=== PATIENT | female | born 1945 | race Caucasian/White ===

== ENCOUNTER 2020-12-18 10:47 | Observation (INO) | payer OTHER ==
[2020-12-18 11:29] LABS: Absolute Lymphocytes (CBC) 1.3 K/uL (0.7-4.9); Basophils % 0.6 % (0-1.3); Hematocrit 42.5 % (36.0-45.0); Lymphocytes % 25.6 % (15.3-44.8); MPV 10.1 fL (7.6-11.3); RBC Red Blood Cell Count 4.78 M/uL (3.86-4.86)
[2020-12-18 11:31] LABS: Protime INR 0.91
[2020-12-18 11:53] LABS: ALT/SGPT 28 U/L (12-78); AST/SGOT 20 U/L (15-37); Alkaline Phosphatase 69 U/L (45-117); BUN Blood Urea Nitrogen 12 mg/dL (7-18); Bicarbonate 28 mmol/L (21-32); Bilirubin Direct 0.2 mg/dL (0-0.2); Bilirubin Total 0.6 mg/dL (0.2-1.0); Glucose Level 109 mg/dL (74-106); Magnesium 2.4 mg/dL (1.8-2.4); NT PRO-BNP 335 pg/mL (<125); Potassium 3.8 mmol/L (3.5-5.1); Protein, Total 7.5 g/dL (6.4-8.2); Sodium Level 140 mmol/L (136-145); Troponin (Emerg Dept Use Only) < 0.02 ng/mL (0.0-0.045)
--- NOTE | 2020-12-18 12:07 | RAD REPORT ---
EXAM DESCRIPTION: RAD - Chest Single View - 12/18/2020 11:44 am CLINICAL HISTORY: CHEST PAIN COMPARISON: None TECHNIQUE: AP portable chest image was obtained 12/18/2020 11:44 am . FINDINGS: Lungs are clear. Heart and vasculature are normal. No measurable pleural effusion and no p neumothorax. No acute bone findings seen. There several small rounded calcifications seen superimpose d on the acromial humeral joint space. These could be intra-articular loose bodies or sequela of prio r rotator cuff injury. This can be further evaluated as an outpatient if symptomatic. No acute aortic findings suspected. IMPRESSION: No acute cardiopulmonary process.
--- NOTE | 2020-12-18 16:14 | EDPHYS ---
Physician Documentation [facility] Name: Yashira Wu Age: 75 yrs Sex: Female : 1945 Arrival Date: 12/18/2020 Time: 10:49 Bed 16 Private MD: ED Physician Rosendo Fernandez HPI: 12/18 14:31 This 75 yrs old Female presents to ER via Ambulatory with complaints of Chest kdr Pain > 30 y/o. 14:31 The patient or guardian reports chest pain that is located primarily in the substernal kdr area, epigastric area, anterior chest wall, left. Onset: She states that she had 2 brief episodes of chest discomfort last evening that resolved. Today she has had return of the discomfort but has been more persistent. The pain does not radiate. Associated signs and symptoms: The patient has no apparent associated signs or symptoms. The chest pain is described as aching, dull, a pressure. Severity of pain: At its worst the pain was very mild mild in the emergency department the pain is unchanged. The patient has not experienced similar symptoms in the past. The patient has not recently seen a physician. Historical: - Allergies: 11:20 No Known Allergies; ss - Home Meds: 15:02 atenolol 50 mg Oral tab [Active]; hydrochlorothiazide 25 mg Oral tab [Active]; ss simvastatin 20 mg Oral tab [Active]; potassium chloride 10 mEq Oral TbER 1 tab once daily [Active]; - PMHx: 11:20 Hypertensive disorder; ss - PSHx: 11:20 None; ss - Immunization history:: Client reports receiving the 2nd dose of the Covid vaccine. - Social history:: Smoking status: Patient denies any tobacco usage or history of. ROS: 14:31 Constitutional: Negative for fever, chills, and weight loss, Eyes: Negative for injury, kdr pain, redness, and discharge, ENT: Negative for injury, pain, and discharge, Neck: Negative for injury, pain, and swelling, Respiratory: Negative for shortness of breath, cough, wheezing, and pleuritic chest pain, Abdomen/GI: Negative for abdominal pain, nausea, vomiting, diarrhea, and constipation, Back: Negative for injury and pain, : Negative for injury, bleeding, discharge, and swelling, MS/Extremity: Negative for injury and deformity, Skin: Negative for injury, rash, and discoloration, Neuro: Negative for headache, weakness, numbness, tingling, and seizure activity. Psych: Negative for depression, anxiety, suicide ideation, homicidal ideation, and hallucinations, Allergy/Immunology: Negative for hives, rash, and allergies, Endocrine: Negative for neck swelling, polydipsia, polyuria, polyphagia, and marked weight changes, Hematologic/Lymphatic: Negative for swollen nodes, abnormal bleeding, and unusual bruising. 14:31 Cardiovascular: Positive for chest pain, Negative for edema, orthopnea, palpitations, paroxysmal nocturnal dyspnea, acute changes. Exam: 14:29 ECG was reviewed by the Attending Physician. kdr 14:31 Constitutional: This is a well developed, well nourished patient who is awake, alert, kdr and in no acute distress. Head/Face: Normocephalic, atraumatic. Eyes: Pupils equal round and reactive to light, extra-ocular motions intact. Lids and lashes normal. Conjunctiva and sclera are non-icteric and not injected. Cornea within normal limits. Periorbital areas with no swelling, redness, or edema. Neck: Trachea midline, no thyromegaly or masses palpated, and no cervical lymphadenopathy. Supple, full range of motion without nuchal rigidity, or vertebral point tenderness. No Meningismus. Chest/axilla: Normal chest wall appearance and motion. Nontender with no deformity. No lesions are appreciated. Respiratory: Lungs have equal breath sounds bilaterally, clear to auscultation and percussion. No rales, rhonchi or wheezes noted. No increased work of breathing, no retractions or nasal flaring. Abdomen/GI: Soft, non-tender, with normal bowel sounds. No distension or tympany. No guarding or rebound. No evidence of tenderness throughout. Back: No spinal tenderness. No costovertebral tenderness. Full range of motion. Skin: Warm, dry with normal turgor. Normal color with no rashes, no lesions, and no evidence of cellulitis. MS/ Extremity: Pulses equal, no cyanosis. Neurovascular intact. Full, normal range of motion. Neuro: Awake and alert, GCS 15, oriented to person, place, time, and situation. Cranial nerves II-XII grossly intact. Motor strength 5/5 in all extremities. Sensory grossly intact. Cerebellar exam normal. Normal gait. Psych: Awake, alert, with orientation to person, place and time. Behavior, mood, and affect are within normal limits. 14:31 Cardiovascular: Rate: normal, Rhythm: regular, Pulses: no pulse deficits are appreciated, Heart sounds: normal, Edema: 1+ edema to level of left midcalf, left ankle, left foot, left toes, right midcalf, right ankle, right foot and right toes. Vital Signs: 11:12 BP 156 / 75; Pulse 56; Resp 18; Temp 98.6(TE); Pulse Ox 97% on R/A; Height 5 ft. 3 in. ss (160.02 cm); Pain 5/10; 13:44 BP 155 / 70; Pulse 48; Resp 17; Pulse Ox 94% on R/A; jt3 15:42 BP 137 / 72; Pulse 57; Resp 17; Pulse Ox 97% on R/A; jt3 17:40 BP 175 / 70; Pulse 60; Resp 17; Pulse Ox 94% on R/A; jt3 20:20 BP 136 / 70; Pulse 58; Resp 18; Temp 98.6; Pulse Ox 96% ; Pain 3/10; bs2 20:41 BP 147 / 67; Pulse 61; Resp 17; Temp 98.4(O); Pulse Ox 97% on R/A; Pain 0/10; bs2 MDM: 14:31 HEART Score: History: Moderately Suspicious (1), ECG: Non specific repolarization kdr disturbance / LBTB / PM (1), Age: > or = 65 years (2), Risk Factors: 1 or 2 risk factors (1), Troponin: < or = 1 x Normal Limit (0). Data reviewed: vital signs, nurses notes, lab test result(s), EKG, radiologic studies. 16:13 Patient medically screened. kdr 12/18 11:08 Order name: Basic Metabolic Panel kdr 12/18 11:08 Order name: CBC with Diff; Complete Time: 12:21 kdr 12/18 11:08 Order name: LFT's; Complete Time: 12:21 kdr 12/18 11:08 Order name: Magnesium; Complete Time: 12:21 kdr 12/18 11:08 Order name: NT PRO-BNP; Complete Time: 12:21 kdr 12/18 11:08 Order name: PT-INR; Complete Time: 12:21 [facility] 12/18 11:08 Order name: Troponin (emerg Dept Use Only); Complete Time: 12:21 [facility] 12/18 11:08 Order name: Basic Metabolic Panel; Complete Time: 12:21 [facility] 12/18 12:45 Order name: Troponin (emerg Dept Use Only): three hours from intial draw [facility] 12/18 12:46 Order name: Troponin (Emerg Dept Use Only); Complete Time: 15:07 [facility] 12/18 15:06 Order name: D-Dimer [facility] 12/18 15:07 Order name: D-Dimer; Complete Time: 15:59 [facility] 12/18 17:21 Order name: SARS-COV-2 RT PCR (Document "Date of Onset" if Symptomatic) 12/18 17:22 Order name: SARS-COV-2 RT PCR [facility] 12/18 11:08 Order name: XRAY Chest (1 view); Complete Time: 12:21 [facility] 12/18 11:08 Order name: EKG; Complete Time: 11:09 [facility] 12/18 11:08 Order name: Cardiac monitoring; Complete Time: 11:12 [facility] 12/18 11:08 Order name: EKG - Nurse/Tech; Complete Time: 11:12 [facility] 12/18 11:08 Order name: IV Saline Lock; Complete Time: 11:12 [facility] 12/18 11:08 Order name: Labs collected and sent; Complete Time: 11:12 [facility] 12/18 11:08 Order name: O2 Per Protocol; Complete Time: 11:12 [facility] 12/18 11:08 Order name: O2 Sat Monitoring; Complete Time: 11: [facility] 12/18 17:27 Order name: Diet Heart Healthy; Complete Time: 17:27 12/18 17:27 Order name: CONS Physician Consult [facility] 12/18 17:31 Order name: Heart Healthy [facility] 12/18 17:51 Order name: Lipase EDNM EC:29 Rate is 56 beats/min. Rhythm is regular, Sinus bradycardia with No ectopy. QRS Endeavor is kdr Normal. NC interval is normal. QRS interval is normal. QT interval is normal. Clinical impression: Sinus bradycardia. Administered Medications: No medications were administered Disposition Summary: 12/18/20 16:26 Hospitalization Ordered Hospitalization Status: Observation kdr Provider: Troy Zimmerman kdr Location: Telemetry/MedSurg (observation)(12/18/20 16:26) kdr Condition: Fair(12/18/20 16:26) kdr Problem: new(12/18/20 16:26) kdr Symptoms: have improved(12/18/20 16:26) kdr Bed/Room Type: Standard kdr Room Assignment: 215(12/18/20 20:09) cg Diagnosis - Chest pain, unspecified(12/18/20 16:26) kdr Forms: - Medication Reconciliation Form kdr - SBAR form kdr Signatures: Dispatcher [employer] EDMS Rosendo Fernandez MD MD kdr Karma Donnelly RN RN ss Kerry Angulo RN RN cg Corrections: (The following items were deleted from the chart) 15:03 11:20 Home Meds: Unable to obtain; ss 16:25 16:13 Home kdr kdr 16:25 16:13 new kdr kdr 16:25 16:13 are resolved kdr kdr 16:25 16:13 Stable kdr kdr 16:25 16:13 Chest pain, unspecified kdr kdr 20:09 16:26 kdr cg
--- NOTE | 2020-12-18 16:14 | ER ---
Nurse's Notes [facility] Name: Yashira Wu Age: 75 yrs Sex: Female : 1945 Arrival Date: 12/18/2020 Time: 10:49 Bed 16 Private MD: Diagnosis: Chest pain, unspecified Presentation: 12/18 11:12 Chief complaint: Patient states: two episodes of chest discomfort last night, lasting ss only moments, but then another episode occurred at 0600 lasting longer this time, concerning patient and her . Coronavirus screen: Client denies travel out of the [place] in the last 14 days. Ebola Screen: Patient denies exposure to infectious person. Patient denies travel to an Ebola-affected area in the 21 days before illness onset. Initial Sepsis Screen: Does the patient meet any 2 criteria? No. Patient's initial sepsis screen is negative. Does the patient have a suspected source of infection? No. Patient's initial sepsis screen is negative. Risk Assessment: Do you want to hurt yourself or someone else? Patient reports no desire to harm self or others. Onset of symptoms was December 17, 2020. 11:12 Method Of Arrival: Ambulatory ss 11:12 Acuity: ADARSH 2 ss Historical: - Allergies: 11:20 No Known Allergies; ss - Home Meds: 15:02 atenolol 50 mg Oral tab [Active]; hydrochlorothiazide 25 mg Oral tab [Active]; ss simvastatin 20 mg Oral tab [Active]; potassium chloride 10 mEq Oral TbER 1 tab once daily [Active]; - PMHx: 11:20 Hypertensive disorder; ss - PSHx: 11:20 None; ss - Immunization history:: Client reports receiving the 2nd dose of the Covid vaccine. - Social history:: Smoking status: Patient denies any tobacco usage or history of. Screenin:22 Abuse screen: Denies threats or abuse. Denies injuries from another. Nutritional jt3 screening: No deficits noted. Tuberculosis screening: No symptoms or risk factors identified. Fall Risk None identified. Assessment: 11:22 General: Appears in no apparent distress. Behavior is calm, cooperative. Pain: jt3 Complains of pain in chest Pain does not radiate. Pain began 4 hours ago. Neuro: Reports Pt. reports memory issues going on for a while now. . Cardiovascular: Rhythm is sinus bradycardia Chest pain is described as mild, quality is heaviness. Respiratory: No deficits noted. 13:45 Reassessment: Pt. updated on plan of care. jt3 Vital Signs: 11:12 BP 156 / 75; Pulse 56; Resp 18; Temp 98.6(TE); Pulse Ox 97% on R/A; Height 5 ft. 3 in. ss (160.02 cm); Pain 5/10; 13:44 BP 155 / 70; Pulse 48; Resp 17; Pulse Ox 94% on R/A; jt3 15:42 BP 137 / 72; Pulse 57; Resp 17; Pulse Ox 97% on R/A; jt3 17:40 BP 175 / 70; Pulse 60; Resp 17; Pulse Ox 94% on R/A; jt3 20:20 BP 136 / 70; Pulse 58; Resp 18; Temp 98.6; Pulse Ox 96% ; Pain 3/10; bs2 20:41 BP 147 / 67; Pulse 61; Resp 17; Temp 98.4(O); Pulse Ox 97% on R/A; Pain 0/10; bs2 ED Course: 10:49 Patient arrived in ED. am2 10:49 Rosendo Fernandez MD is Attending Physician. kdr 10:52 Anmol Yates, JOSE M is Primary Nurse. jt3 11:20 Triage completed. ss 11:20 Arm band placed on right wrist. ss 11:22 Patient has correct armband on for positive identification. Bed in low position. Call jt3 light in reach. Side rails up X 1. quality assurance monitor body on. Pulse ox on. NIBP on. 11:22 No provider procedures requiring assistance completed. Inserted saline lock: 20 gauge jt3 in left antecubital area, using aseptic technique. Patient maintains SpO2 saturation greater than 95% on room air. 11:44 XRAY Chest (1 view) In Process Unspecified. EDMS 16:26 Troy Zimmerman MD is Hospitalizing Provider. kdr 19:52 Primary Nurse role handed off by Anmol Yates, JOSE M mw2 20:10 Nena Harris, JOSE M is Primary Nurse. bs2 20:21 Patient admitted, IV remains in place. bs2 Administered Medications: No medications were administered Outcome: 16:13 Discharge ordered by . kdr 16:26 Decision to Hospitalize by Provider. kdr 20:20 Admitted to Med/surg accompanied by tech, via wheelchair, room 215, with chart, Report bs2 called to floor 20:20 Condition: stable 20:20 Instructed on the need for admit, Demonstrated understanding of instructions. 20:28 Admitted to Med/surg Report called to Attempted to call report. Phone ringing with no tw5 one picking up for 3 min. Number called [phone] 20:31 Admitted to Med/surg Report called to Attempted to call report to [phone] no answer, tw5 phone ringing with no answer for 3 min. 20:52 Patient left the ED. bs2 Signatures: Dispatcher [employer] EDMS Rosendo Fernandez MD MD [facility] Karma Donnelly RN RN Catherine Huang 2 Angel Wilde mw2 Nena Harris, RN RN bs2 Chrissy Matute tw5 Anmol Yates RN RN jt3 Corrections: (The following items were deleted from the chart) 15:03 11:20 Home Meds: Unable to obtain; [facility]
--- NOTE | 2020-12-18 17:37 | P.HP ---
Certification for Inpatient Patient admitted to: Observation With expected LOS: <2 Midnights Practitioner: I am a practitioner with admitting privileges, knowledge of patient current condition, hospital course, and medical plan of care. Services: Services provided to patient in accordance with Admission requirements found in Title 42 Section 412.3 of the Code of Federal Regulations Patient History Date of Service: 12/18/20 Reason for admission: Chest pain History of Present Illness: 71-year-old female, PMH: Hypertension, hyperlipidemia Presents to ED due to ongoing chest pain. Patient describes pain is intermittent, over the last few weeks. Feels like it has gotten worse. Described as pressure sensation, points at her sternum. States it is worse with increased activity. She has been carrying heavy buckets and feeding cows. She also reports it has been hurting more often at nighttime. She also reports increased distress at home lately. She denies any recent fever/chills, no nausea/vomiting, no diarrhea, no rashes. She states no significant history of heartburn, acid reflux, no acid taste in her mouth, no increased burping. She has not tried anything to alleviate this. In the ED, EKG without acute ischemic changes, initial troponin negative. ER physician requested to bring patient in for observation, ACS rule out. - Past Medical/Surgical History -: Hypertension -: Hyperlipidemia Past Surgical History: Patient denies surgical history - Family History Mother -: Stroke - Social History Smoking Status: Never smoker Alcohol use: Yes Place of Residence: Home Review of Systems 10-point ROS is otherwise unremarkable Physical Examination - Physical Exam General: Alert, In no apparent distress, Oriented x3 HEENT: Sclerae nonicteric Neck: Supple, No LAD Respiratory: Clear to auscultation bilaterally, Normal air movement Cardiovascular: No edema, Regular rate/rhythm, Normal S1 S2, No murmurs Gastrointestinal: Soft and benign, Non-distended, Tenderness (epigastric) Musculoskeletal: No erythema, No tenderness Integumentary: No rashes, No significant lesion Neurological: Normal speech, Normal strength at 5/5 x4 extr, Normal affect - Studies Laboratory Data (last 24 hrs) 12/18/20 11:13: PT 10.4, INR 0.91 12/18/20 11:13: WBC 5.00, Hgb 14.2, Hct 42.5, Plt Count 185 12/18/20 11:13: Sodium 140, Potassium 3.8, BUN 12, Creatinine 0.74, Glucose 109 H, Magnesium 2.4, Total Bilirubin 0.6, AST 20, ALT 28, Alkaline Phosphatase 69 Assessment and Plan - Advance Directives Does patient have a Living Will: No Does patient have a Durable POA for Healthcare: No Physician Review Additional Text: Problem List Chest pain Hypertension Hyperlipidemia Initial EKG and troponin negative We will trend troponin Possibly cardiac etiology Exam with some epigastric tenderness, although patient denies any history/symptoms of GERD/acid reflux/ulcer, possible ulcer will give Carafate and Protonix telemetry cardio consult VTE: ambulatory Code: full Dispo: anticipate dc home tomorrow Time Spent Managing Pts Care (In Minutes): 60
[2020-12-18] MEDS: PANTOPRAZOLE 40MG TABLET PO SCH (19:00)
[2020-12-18 21:32] VITALS: BMI 25.9
[2020-12-18] MEDS ORDERED: ONDANSETRON 4 MG/2 ML VIAL IV PRN (21:37)
[2020-12-18] MEDS ORDERED: ACETAMINOPHEN 500 MG TAB PO PRN (21:37)
[2020-12-18] MEDS: SUCRALFATE 1 GM TABLET PO SCH (23:34)
[2020-12-18 23:40] LABS: Urine Appearance CLEAR (Clear); Urine Bilirubin NEGATIVE (Negative); Urine Blood 2+ (Negative); Urine Color YELLOW (Yellow); Urine Glucose NEGATIVE (Negative); Urine Protein NEGATIVE (Negative)
[2020-12-18 23:54] LABS: Urine Microscopic Reflex ORDER UMIC
[2020-12-18 23:59] LABS: Urine Bacteria 20-50 /HPF (<20); Urine Yeast MANY (NONE SEEN)
[2020-12-19] MEDS ORDERED: POTASS/SODIUM PHOSPHATE 1 PKT POWD.PACK PO ONE (00:04)
[2020-12-19 05:04] LABS: Absolute Lymphocytes (CBC) 2.1 K/uL (0.7-4.9); Basophils % 0.4 % (0-1.3); Hematocrit 41.3 % (36.0-45.0); Lymphocytes % 29.7 % (15.3-44.8); MPV 9.7 fL (7.6-11.3); RBC Red Blood Cell Count 4.62 M/uL (3.86-4.86)
[2020-12-19 05:18] LABS: BUN Blood Urea Nitrogen 11 mg/dL (7-18); Bicarbonate 28 mmol/L (21-32); Glucose Level 107 mg/dL (74-106); Magnesium 2.3 mg/dL (1.8-2.4); Potassium 3.3 mmol/L (3.5-5.1); Sodium Level 139 mmol/L (136-145)
[2020-12-19 06:12] VITALS: O2SAT 100
[2020-12-19] MEDS ORDERED: POTASSIUM CL SA 10 MEQ TAB PO ONE (06:38)
[2020-12-19] MEDS ORDERED: FLUCONAZOLE 100 MG TAB PO SCH (09:00)
[2020-12-19] MEDS ORDERED: ASPIRIN 81 MG CHEWABLE TABLET PO SCH (09:00)
[2020-12-19] MEDS ORDERED: levoFLOXacin 750 MG TAB PO SCH (09:00)
[2020-12-19] MEDS: SUCRALFATE 1 GM TABLET PO SCH ×2 (09:04→11:27)
[2020-12-19] MEDS: PANTOPRAZOLE 40MG TABLET PO SCH (09:10)
[2020-12-19 12:27] VITALS: BP 157/76; TEMP 98.7
[2020-12-19 12:27] LABS: Urine Appearance CLEAR (Clear); Urine Bilirubin NEGATIVE (Negative); Urine Blood TRACE (Negative); Urine Color YELLOW (Yellow); Urine Glucose NEGATIVE (Negative); Urine Protein NEGATIVE (Negative); Urine Specific Gravity <=1.005 (1.005-1.030); Urine pH 7.5 (5.0-7.0)
[2020-12-19 12:32] LABS: Urine Microscopic Reflex ORDER UMIC
[2020-12-19 12:36] LABS: Urine Bacteria NONE SEEN /HPF (<20); Urine RBC <5 /HPF (NONE SEEN)
[2020-12-19] MEDS ORDERED: INFLUENZA VACCINE (for 6+ mo) 0.5 ML DOSE IMVAC ONE (13:00)
[2020-12-19] MEDS ORDERED: PNEUMOCOCCAL VACCINE 0.5 ML IMVAC ONE (13:00)
--- NOTE | 2020-12-19 18:12 | P.DS ---
Admission Date: 12/18/20 Discharge Date: 12/19/20 Disposition: ROUTINE DISCHARGE Discharge Condition: GOOD Reason for Admission: Chest pain Consultations: Cardiology - Dr. Kennedy Procedures: CXR (12/18): IMPRESSION: No acute cardiopulmonary process. Problem List Chest pain Anxiety Hypertension Hyperlipidemia Brief History of Present Illness: 71-year-old female, PMH: Hypertension, hyperlipidemia Presents to ED due to ongoing chest pain. Patient describes pain is intermittent, over the last few weeks. Feels like it has gotten worse. Described as pressure sensation, points at her sternum. States it is worse with increased activity. She has been carrying heavy buckets and feeding cows. She also reports it has been hurting more often at nighttime. She also reports increased distress at home lately. She denies any recent fever/chills, no nausea/vomiting, no diarrhea, no rashes. She states no significant history of heartburn, acid reflux, no acid taste in her mouth, no increased burping. She has not tried anything to alleviate this. In the ED, EKG without acute ischemic changes, initial troponin negative. ER physician requested to bring patient in for observation, ACS rule out. Hospital Course: EKG without ischemic changes, troponin remained negative. Cardiology consulted, agree this is likely cardiac origin. Patient with some epigastric tenderness on exam. Suspect patient is having some acid reflux/ulcer. Had some improvement with initiation of Protonix. Patient discharged home with prescription for Protonix. She is to follow-up with cardiology this following week to schedule outpatient stress test/echocardiogram. On admission, patient's UA was grossly positive with pyuria and bacteriuria, patient was adamant that she did not have any symptoms. Straight cath specimen was obtained for repeat UA which was normal. Vital Signs/Physical Exam: Temp Pulse Resp BP Pulse Ox 98.7 F 68 18 157/76 H 97 12/19/20 12:00 12/19/20 12:00 12/19/20 12:00 12/19/20 12:00 12/19/20 12:00 General: Alert, In no apparent distress, Oriented x3, Demented HEENT: Sclerae nonicteric Neck: Supple Respiratory: Clear to auscultation bilaterally, Normal air movement Cardiovascular: No edema, Regular rate/rhythm Gastrointestinal: Soft and benign, Non-distended Musculoskeletal: No tenderness Integumentary: No rashes, No significant lesion Neurological: Normal speech, Normal strength at 5/5 x4 extr, Normal affect Laboratory Data at Discharge: WBC 7.10 K/uL (4.3-10.9) D 12/19/20 04:39 Hgb 13.9 g/dL (12.0-15.0) 12/19/20 04:39 Hct 41.3 % (36.0-45.0) 12/19/20 04:39 Plt Count 143 K/uL (152-406) L D 12/19/20 04:39 PT 10.4 SECONDS (9.5-12.5) 12/18/20 11:13 INR 0.91 12/18/20 11:13 Sodium 139 mmol/L (136-145) 12/19/20 04:39 Potassium 3.8 mmol/L (3.5-5.1) 12/19/20 12:21 BUN 11 mg/dL (7-18) 12/19/20 04:39 Creatinine 0.55 mg/dL (0.55-1.3) 12/19/20 04:39 Glucose 107 mg/dL (74-106) H 12/19/20 04:39 Magnesium 2.3 mg/dL (1.8-2.4) 12/19/20 04:39 Total Bilirubin 0.6 mg/dL (0.2-1.0) 12/18/20 11:13 AST 20 U/L (15-37) 12/18/20 11:13 ALT 28 U/L (12-78) 12/18/20 11:13 Alkaline Phosphatase 69 U/L (45-117) 12/18/20 11:13 Troponin I < 0.02 ng/mL (0.0-0.045) 12/19/20 04:39 Lipase 99 U/L (73-393) 12/18/20 13:56 Home Medications: Ascorbic Acid [Vitamin C] 1 tab PO BEDTIME 12/19/20 Aspirin 81 mg PO BEDTIME 12/19/20 Atenolol [Tenormin] 1 tab PO DAILY 12/19/20 Pantoprazole [Protonix Tab*] 40 mg PO DAILY 30 Days #30 tab 12/19/20 Potassium Chloride 1 tab PO DAILY 12/19/20 Simvastatin 1 tab PO BEDTIME 11/13/21 hydroCHLOROthiazide [Hydrochlorothiazide] 1 tab PO DAILY 12/19/20 New Medications: Pantoprazole [Protonix Tab*] 40 mg PO DAILY 30 Days #30 tab Physician Discharge Instructions: Your chest pain was evaluated by chest xray, EKG, cardiac enzymes. These were all normal. Cardiology was consulted and recommended no further testing in the hospital. You did not have any evidence of a heart attack. You are deemed stable for discharge home. Recommend continuing your home medications as previously prescribed. Follow up with Dr. Kennedy at 1pm on Monday to arrange outpatient stress test / echocardiogram. Your epigastric abdominal pain may be due to acid reflux or small ulcer. You are discharged home with prescription for pantoprazole. Please follow up with your PCP in 1-2 weeks. Diet: AHA Activity: Ad cruzito Followup: Tyrell Dawn MD [Primary Care Provider] - (Call to schedule follow up appointment.) Time spent managing pt's care (in minutes): 45
--- NOTE | 2020-12-19 18:25 | CON ---
Date of Consultation: 12/18/2020 History Of Present Illness: Ms. Wu is a 75-year-old white woman who lives in [facility]. She came in with chest pain that is substernal, midepigastric with and without exertion. Symptoms l asted about 5 minutes to 10 minutes without any nausea, vomiting, diaphoresis, PND, orthopnea, pedal edema, palpitations, or syncope. She has already ruled out for an [place]. Allergies: NONE. Review of Systems: Negative. Social History: Negative. Family History: Negative. Medications: At home include atenolol, hydrochlorothiazide, simvastatin, and potassium. Past Medical History: Includes hypertension and dyslipidemia. Physical Examination: Vital signs: Stable although she was slightly hypertensive at 175/70, sinus rhythm. Temperature 98. 6. HEENT: Negative. Neck: Supple with no bruit. Chest: Clear to auscultation and percussion. Cardiac exam: Revealed a regular rhythm and rate. No murmurs, gallops, or rubs. Abdomen: Benign. Extremities: Revealed no clubbing, cyanosis, or edema. She was COVID negative. BNP was 335. Troponin was negative and EKG showed nonspecific changes. Impression And Plan: Chest pain that is suspicious in a patient with hypertension, dyslipidemia. I think she needs to be on a low-dose beta cesia in addition to her medication. I think she needs to continue her statin. She is to continue her aspirin. She is already on atenolol at home. She shou ld continue that, if she is taking it. She is also on hydrochlorothiazide. I am comfortable with he r going home today and I will make an arrangement for her to have an outpatient echocardiogram and st ress test in the very near future. LORRAINE/OPAL Voice ID: [id number] Report ID: [id number]
== END 2020-12-19 14:25 | disposition home or self-care (01) ==
LOC: ER 10:47 → ERHOLD 17:25 → 2ND 20:39
PROVIDERS: ADMIT Hospitalist; ATTEND Hospitalist
DX: R07.9 Chest pain, unspecified (principal); I10 Essential (primary) hypertension; E78.5 Hyperlipidemia, unspecified; F41.9 Anxiety disorder, unspecified; Z20.822 Contact with and (suspected) exposure to COVID-19
CPT/HCPCS: 93005; 87088; 85025 ×2; 87086; 80048 ×2; 36415; 83735 ×2; 84132; 85610; 85379; 80076; 84484 ×4; 83690; 83880; 71045; 94760; 99285; U0003; G0378 ×3; 81003; 81015